=== PATIENT | female | born 1985 | race American Indian/Alaskan Native ===

== ENCOUNTER 2022-01-08 07:05 | Emergency (ER) | payer MEDICAID ==
[2022-01-08 07:15] VITALS: BP 138/82
== END 2022-01-08 17:11 | disposition left against medical advice (07) ==
LOC: ED 07:05
DX: M79.605 Pain in left leg (principal); M79.604 Pain in right leg; Z53.21 Procedure and treatment not carried out due to patient leaving prior to being seen by health care provider